=== PATIENT | female | born 1975 ===

== ENCOUNTER 2016-03-13 03:11 | Emergency (ER) | payer MEDICAID ==
[2016-03-13] MEDS ORDERED: HYDROCODONE/ACETAMINOPHEN 5/325MG TABLET ONE (03:30)
[2016-03-13 03:31] LABS: URINE APPEARANCE CLEAR; URINE BILIRUBIN NEGATIVE (NEGATIVE); URINE BLOOD NEGATIVE (NEGATIVE); URINE COLOR YELLOW; URINE GLUCOSE (UA) NEGATIVE (NEGATIVE); URINE LEUKOCYTE ESTERASE NEGATIVE (NEGATIVE); URINE NITRITE NEGATIVE (NEGATIVE); URINE PROTEIN NEGATIVE (NEGATIVE); URINE UROBILINOGEN NORMAL (0-1 mg/dl)
[2016-03-13 03:44] LABS: HCG,QUALITATIVE URINE NEGATIVE
[2016-03-13 03:47] LABS: ABSOLUTE NEUTROPHIL COUNT 5.2 K/mm3 (1.8-7.7); BASO % 0.5 % (0.2-1.0); EOS # 0.3 (0.0-0.5); EOS % 3.2 % (0.9-2.9); HEMATOCRIT 39.6 % (37.0-47.0); HEMOGLOBIN 13.1 gm/l (12.0-16.0); IMM NEUT% 0.2 % (0-1); LYMPH # 2.3 (1.0-4.8); MEAN CELL VOLUME 86.8 fl (81.0-99.0); MEAN CORPUSCULAR HEMOGLOBIN 28.7 pg (27.0-31.0); MEAN CORPUSCULAR HGB CONC 33.1 g/dl (33.0-37.0); MONO # 0.7 (0.0-0.8); MONO % 8.3 % (4-12); NEUT % 60.8 % (43-75); PLATELET COUNT 251 K/mm3 (130-400); RED CELL DISTRIBUTION WIDTH 13.3 % (11.5-14.5)
[2016-03-13 04:18] LABS: ALB/GLOB RATIO 1.3 (>1.0); ALBUMIN 4.2 gm/dL (3.5-5.7); CALCIUM 9.3 mg/dL (8.6-10.3)
--- NOTE | 2016-03-13 07:58 | CT ---
Exam: CT abdomen and pelvis without contrast COMPARISON: 05/07/2012 INDICATION: Right flank pain for 4 hours. TECHNIQUE: CT examination of the abdomen and pelvis was obtained without contrast. FINDINGS: There is a rounded focus of airspace disease within the right lower lobe with ill-defined margins which is most compatible with a small focus of bronchopneumonia. There is no pleural effusion and left lung is clear. There are 3 punctate nonobstructing calculi in the upper pole of the left kidney and solitary punctate 1 mm nonobstructing calculus within the interpolar region of the right kidney. There is no hydronephrosis or perinephric stranding. The gallbladder is absent. Several calcifications are again noted within the liver, of no clinical concern. Spleen is unremarkable. There is no adrenal mass. Pancreas within normal limits. There has been interval removal of the presumed teratomas from the right ovary. Left ovary is unremarkable. There is a gently lobulated contour of the uterus as seen previously which may reflect underlying leiomyomatous changes. There is no pelvic lymphadenopathy or fluid collection. There is no bowel obstruction, free air or free intraperitoneal fluid. Tiny fat-containing periumbilical hernia is noted. No worrisome lytic or blastic osseous lesion is identified. IMPRESSION: Small focus of airspace disease within the right lower lobe concerning for bronchopneumonia in the correct clinical setting. No additional findings identified to explain right flank pain. Several additional findings as above. Preliminary report transmitted to the emergency department from [facility] at 0424 hours 03/13/2016.
[2016-03-14 14:35] LABS: CHLAMYDIA BD Negative (Negative); N.GONORRHOEAE BD Negative (Negative); SOURCE Urine (())
== END 2016-03-13 04:49 | disposition home or self-care (01) ==
LOC: ED 03:11
DX: J18.1 Lobar pneumonia, unspecified organism (principal); R10.9 Unspecified abdominal pain
CPT/HCPCS: 83690; 87491; 87591; 81025; 85025; 80053; 81003; 74176; 99284; 99283; A9270

== ENCOUNTER 2016-03-14 22:55 | Emergency (ER) | payer MEDICAID ==
[2016-03-14] MEDS ORDERED: IOPAMIDOL 370 (76%) 100 ML VIAL IV ONE (22:56)
[2016-03-15] MEDS ORDERED: HYDROCODONE/ACETAMINOPHEN 5/325MG TABLET ONE (02:41)
[2016-03-15 03:11] LABS: ABSOLUTE NEUTROPHIL COUNT 6.2 K/mm3 (1.8-7.7); BASO % 0.4 % (0.2-1.0); EOS # 0.2 (0.0-0.5); EOS % 2.3 % (0.9-2.9); HEMATOCRIT 40.5 % (37.0-47.0); HEMOGLOBIN 13.5 gm/l (12.0-16.0); IMM NEUT # 0.1 K/mm3 (0-0.2); IMM NEUT% 0.7 % (0-1); LYMPH % 21.5 % (15-45); MEAN CELL VOLUME 85.6 fl (81.0-99.0); MEAN CORPUSCULAR HEMOGLOBIN 28.5 pg (27.0-31.0); MEAN CORPUSCULAR HGB CONC 33.3 g/dl (33.0-37.0); MEAN PLATELET VOLUME 10.2 fl (7.4-10.4); MONO # 0.7 (0.0-0.8); MONO % 7.2 % (4-12); NEUT % 67.9 % (43-75); PLATELET COUNT 267 K/mm3 (130-400)
[2016-03-15 03:25] LABS: ALB/GLOB RATIO 1.3 (>1.0); ALBUMIN 4.3 gm/dL (3.5-5.7); CALCIUM 9.5 mg/dL (8.6-10.3)
[2016-03-15 04:13] LABS: SPECIFIC GRAVITY 1.015 (1.001-1.030); URINE BILIRUBIN NEGATIVE (NEGATIVE); URINE BLOOD NEGATIVE (NEGATIVE); URINE GLUCOSE (UA) NEGATIVE (NEGATIVE); URINE LEUKOCYTE ESTERASE NEGATIVE (NEGATIVE); URINE NITRITE NEGATIVE (NEGATIVE); URINE PROTEIN NEGATIVE (NEGATIVE); URINE UROBILINOGEN NORMAL (0-1 mg/dl)
[2016-03-15 04:16] LABS: URINE APPEARANCE CLEAR; URINE COLOR YELLOW
--- NOTE | 2016-03-15 07:16 | CT ---
EXAMINATION: Contrast enhanced CT scan of the abdomen and pelvis. CLINICAL INDICATION: Right flank pain. History pneumonia. COMPARISON: Prior CT scan dated 03/13/2016. TECHNIQUE: Oral contrast: None Following uneventful administration of 100 mL of Isovue 370, intravenously axial images were acquired from just above the domes of the diaphragm to the iliac crest. A CT scan of the pelvis was also obtained from the iliac crest to the initial tuberosities. Stacked axial, sagittal, and coronal images were reviewed. Findings: Abdomen CT: (Contrast-enhanced): There is been mild improvement of airspace density in the right lower lobe. No developing pleural effusion is identified. There is no abscess. Slight basilar atelectasis is similar. Calcifications within the right lobe liver are similar. Cholecystectomy changes are noted. There is no obstruction. The spleen size and attenuation are within normal limits. The pancreas is normal in size and contours. No inflammatory stranding is identified. The pancreatic duct is unremarkable. The adrenals are unremarkable. Kidneys are without developing mass or hydronephrosis. There is no perinephric stranding. Left renal cysts are again noted. The abdominal aorta unremarkable. There is no retroperitoneal adenopathy identified. The stomach is unremarkable. The visualized segments of small and large bowel are within normal limits. The osseous structures exhibit no displaced fracture. No lytic or blastic lesions are identified. Pelvic CT: (Contrast -enhanced): No bladder is mildly distended. No bladder wall thickening or adjacent inflammatory stranding is identified. T uterus is unchanged in appearance. T the left ovary is prominent in size and measures 3.0 x 3.8 cm. The right adnexa exhibits no worrisome mass or fibroid changes. No adenopathy is identified. The distal abdominal aorta and iliac vessels are within normal limits. The visualized segments of small and large bowel are unremarkable. The appendix is unremarkable. No displaced fractures are identified. There are no gross osteolytic or blastic lesions. The overlying soft tissues are unremarkable. IMPRESSION: 1. Improving airspace density right lower lobe. No developing abscess or pleural effusion is identified. 2. No acute findings within the abdomen and pelvis. 3. Prior cholecystectomy. 4. Hepatic calcifications are again noted. 5. Left renal cysts. 6. Prominent left ovary as described. No adjacent inflammatory stranding or fluid is seen. Findings were communicated by [facility] to the emergency department at: 3:51 AM 03/15/2016
== END 2016-03-15 04:33 | disposition home or self-care (01) ==
LOC: ED 22:55
DX: R10.31 Right lower quadrant pain (principal); M06.9 Rheumatoid arthritis, unspecified; M79.9 Soft tissue disorder, unspecified
CPT/HCPCS: 83690; 85025; 80053; 81003; 74177; 99284 ×2; Q9967; A9270